=== PATIENT | female | born 1990 | race Caucasian/White ===

== ENCOUNTER 2024-01-29 03:31 | Outpatient (CLI) | payer OTHER ==
[2024-01-29 04:04] LABS: Amorphous Sediment,Urine Rare /hpf; Appearance,Urine Cloudy (Clear); Bilirubin,Urine Negative (Negative); Blood,Urine Moderate (Negative); Color,Urine Light Yellow; Glucose,Urine (UA) Negative (Negative); Ketones,Urine Negative (Negative); Leukocyte Esterase,Urine Large (Negative); Nitrite,Urine Negative (Negative); Protein,Urine 2+ (Negative); RBC,Urine 180 /hpf (0-5); Specific Gravity,Urine 1.017 (1.001-1.035); Squamous Epithelial Cell,Urine 5 /hpf (0-4); Urobilinogen,Urine <2.0 mg/dL (<2.0); WBC,Urine >182 /hpf (0-5)
[2024-01-29 04:59] VITALS: BP 116/73; PULSE 110; RESP 16; TEMP 96.7
--- NOTE | 2024-01-29 09:11 | P.MSEPDOC ---
Presenting Problems - Arrival Data Date of Arrival on Unit: 01/29/24 Time of Arrival on Unit: 03:31 Mode of Transport: Ambulatory - Complaint OB-Reason for Admission/Chief Complaint: Possible Onset of Labor Comment: Patient presents to triage with contractions in back that she is rating 4/10 pain and states they come around every 7 min. Medical History - Information : 1 Para: 0 Term: 0 : 0 Abortions: Spontaneous or Elective: 0 Number of Living Children: 0 - Gestational Age Gestational Age by GURU (wks/days): 21 Weeks and 4 Days Review of Systems - Review of Systems Constitutional: No problems Breast: No problems ENT: No problems Cardiovascular: No problems Respiratory: No problems Gastrointestinal: No problems Genitourinary: No problems Musculoskeletal: No problems Neurological: No problems Skin: No problems Vital Signs - Temperature Temperature: 96.7 F Temperature Source: Temporal Artery Scan - Pulse Pulse Oximetery Pulse Rate: 110 Pulse Assessment Method: Pulse Oximetry - Respirations Respiratory Rate: 16 Oxygen Delivery Method: Room Air O2 Sat by Pulse Oximetry: 98 - Blood Pressure Right Arm Blood Pressure: 116/73 Blood Pressure Mean: 87 Blood Pressure Source: Automatic Cuff Physician Notification - Physician Notified Physician Notified Date: 01/29/24 Physician Notified Time: 04:31 Physician: Mya Upton Order Received: Yes (urinalysis sent for culture and discharge home.) Maternal Triage Index - Maternal Triage Index Presenting for scheduled procedure w/no complaint: No - Stat/Priority 1 Stat Priority 1: No - Urgent/Priority 2 Urgent Priority 2: No - Prompt/Priority 3 Prompt Priority 3: Yes Criteria Met for Priority 3: Patient presents to triage with contractions in back that she is rating 4/10 pain and states they come around every 7 min. Disposition - Disposition OB Disposition: Discharge to home Discharge Date: 01/29/24 Discharge Time: 04:56 I agree with the RN Medical Screening Exam: Yes Case reviewed; plan agreed upon as documented in EMR&OBIX.: Yes Diagnosis: LOW BACK PAIN, UNSPECIFIED
== END 2024-01-29 04:56 ==
LOC: FBPOP 03:31
PROVIDERS: ATTEND Obstetrics & Gynecology
DX: O47.1 False labor at or after 37 completed weeks of gestation (principal); Z3A.24 24 weeks gestation of pregnancy; Z88.1 Allergy status to other antibiotic agents
CPT/HCPCS: 81001; 87086; 99213

== ENCOUNTER 2024-04-01 15:26 | Outpatient (CLI) | payer OTHER ==
[2024-04-01 16:33] LABS: Appearance,Urine Clear (Clear); Bilirubin,Urine Negative (Negative); Blood,Urine Negative (Negative); Color,Urine Colorless; Glucose,Urine (UA) Negative (Negative); Ketones,Urine Negative (Negative); Leukocyte Esterase,Urine Trace (Negative); Nitrite,Urine Negative (Negative); PH, Urine 6.5 (5.0-8.0); Protein,Urine Negative (Negative); RBC,Urine <1 /hpf (0-5); Specific Gravity,Urine 1.002 (1.001-1.035); Squamous Epithelial Cell,Urine 1 /hpf (0-4); Urobilinogen,Urine <2.0 mg/dL (<2.0); WBC,Urine 1 /hpf (0-5)
[2024-04-01 16:59] VITALS: BP 124/78; PULSE 96; RESP 17; TEMP 98.2
--- NOTE | 2024-04-18 10:57 | P.MSEPDOC ---
Presenting Problems - Arrival Data Date of Arrival on Unit: 04/01/24 Time of Arrival on Unit: 15:26 Mode of Transport: Ambulatory - Complaint OB-Reason for Admission/Chief Complaint: Vaginal Bleeding Comment: pt presents to triage for vaginal bleeding, only some pink on the toilet paper around 1400, no other bleeding noted since Medical History - Information : 1 Para: 0 Term: 0 : 0 Abortions: Spontaneous or Elective: 0 Number of Living Children: 0 - Gestational Age Gestational Age by GURU (wks/days): 30 Weeks and 4 Days Review of Systems - Review of Systems Constitutional: No problems Breast: No problems ENT: No problems Cardiovascular: No problems Respiratory: No problems Gastrointestinal: No problems Genitourinary: No problems Musculoskeletal: No problems Neurological: No problems Skin: No problems Vital Signs - Temperature Temperature: 98.2 F Temperature Source: Axillary - Pulse Right Brachial Pulse Rate: 96 Pulse Assessment Method: Automatic Cuff - Respirations Respiratory Rate: 17 Oxygen Delivery Method: Room Air O2 Sat by Pulse Oximetry: 97 - Blood Pressure Right Arm Blood Pressure: 124/78 Blood Pressure Mean: 93 Blood Pressure Source: Automatic Cuff Medical Screen Scoring - Uterine Contractions Intensity: Mild Resting: Soft to palpation - Assessment - Baby A Baseline FHR: 120 Heart Rate - NICHD Category: Category I (Normal) NST: Reactive Physician Notification - Notification Comment Comment: reactive nst, UA wnl, no bleeding noted since inital episode, has appt April 13 in the office Maternal Triage Index - Maternal Triage Index Presenting for scheduled procedure w/no complaint: No - Stat/Priority 1 Stat Priority 1: No - Urgent/Priority 2 Urgent Priority 2: Yes Provider Notified: Ayden Martinez Provider Notified Time: 16:19 Criteria Met for Priority 2: pt presents to triage for vaginal bleeding, only some pink on the toilet paper around 1400, no other bleeding noted since Disposition - Disposition OB Disposition: Triage, Discharge to home, Written follow up instructions reviewed Discharge Date: 04/01/24 Discharge Time: 16:45 I agree with the RN Medical Screening Exam: Yes Physician's MSE Comment: I have neither seen nor examined the patient. Case reviewed; plan agreed upon as documented in EMR&OBIX.: Yes Diagnosis: RELATED CONDITIONS, UNSPECIFIED, THIRD TRIMESTER
== END 2024-04-01 16:45 | disposition home or self-care (01) ==
LOC: FBPOP 15:26
PROVIDERS: ATTEND Obstetrics & Gynecology
DX: O46.93 Antepartum hemorrhage, unspecified, third trimester (principal); Z3A.30 30 weeks gestation of pregnancy; Z88.6 Allergy status to analgesic agent
CPT/HCPCS: 59025; 81001; 99213

== ENCOUNTER 2024-05-16 20:45 | Inpatient (IN) | payer OTHER ==
[2024-05-16] MEDS ORDERED: TRANEXAMIC 1,000 MG/100ML-NACL 1,000 MG in EMPTY BAG 1 BAG IV PRN (21:31)
[2024-05-16] MEDS ORDERED: OXYTOCIN 10 UNIT/ML 1 ML VIAL IM PRN (21:31)
[2024-05-16] MEDS ORDERED: METHYLERGONOVINE 0.2 MG/ML 1 ML AMP IM PRN (21:31)
[2024-05-16] MEDS ORDERED: miSOPROStoL 200 MCG TAB PO PRN (21:31)
[2024-05-16] MEDS ORDERED: LIDOCAINE 0.5% (PF) 5 MG/ML (50 ML SDV) SQ PRN (21:31)
[2024-05-16] MEDS ORDERED: CARBOPROST TROMETHAMINE 250 MCG/ML 1 ML AMP IM PRN (21:31)
[2024-05-16] MEDS ORDERED: TERBUTALINE 1 MG/ML VIAL SQ PRN (21:31)
[2024-05-16] MEDS ORDERED: miSOPROStoL 200 MCG TAB RECTAL PRN (21:31)
[2024-05-16] MEDS: LACTATED RINGERS 1,000 ML IV SCH (22:00)
[2024-05-16 22:32] LABS: Basophils # (A) 0.1 k/uL (0-0.2); Basophils % (A) 1 %; Eosinophils # (A) 0.2 k/uL (0-0.7); Eosinophils % (A) 2 %; HCT 34.1 % (34.0-46.0); HGB 11.2 gm/dL (11.4-16.0); Hypochromasia Slight; Lymphocytes # (A) 3.2 k/uL (1.0-4.8); Lymphocytes % (A) 32 %; MCV 84.9 fL (80.0-100.0); Mean Platelet Volume 10.2; Monocytes # (A) 0.6 k/uL (0-1.0); Monocytes % (A) 6 %; Neutrophils # (A) 5.7 k/uL (1.3-7.7); Neutrophils % (A) 57 %; Platelet Count 248 k/uL (150-450); RBC 4.01 m/uL (3.80-5.40); RDW 12.7 % (11.5-15.5)
[2024-05-16] MEDS ORDERED: SODIUM CHLORIDE 0.9% 250 ML BAG ONE (23:10)
[2024-05-16] MEDS ORDERED: ROPIVACAINE 5 MG/ML 30 ML VIAL ONE (23:10)
[2024-05-16] MEDS ORDERED: fentaNYL (PF) 50 MCG/ML 5 ML AMP ONE (23:10)
--- NOTE | 2024-05-17 00:20 | P.HPOB ---
History of Present Illness H&P Date: 05/17/24 Chief Complaint: IUP at 37 weeks, spontaneous rupture of membranes 33 yo at 37 weeks that presents to labor and delivery with complaints of spontaneous rupture of membranes around 1999. Patient states fluid was noted to be clear in nature. Patient in addition is noting contractions. Patient denies vaginal bleeding. Patient notes good movement. Patient has been receiving routine care which has been essentially uncomplicated. On blood work this patient has a blood type of a positive, rubella status immune, RPR is nonreactive, hepatitis B surface Ag is negative, HIV is negative. Group beta strep culture is negative per patient. Review of Systems Constitutional: Denies chills, Denies fatigue, Denies fever Ears, nose, mouth and throat: Denies headache Cardiovascular: Reports leg edema Respiratory: Denies dyspnea Gastrointestinal: Denies constipation, Denies diarrhea, Denies nausea, Denies v omiting Genitourinary: Reports Past Medical History History of Any Multi-Drug Resistant Organisms: None Reported Past Surgical History: Tonsillectomy Smoking Status: Never smoker Past Drug Use History: None Reported Medications and Allergies Home Medications Medication Instructions Recorded Confirmed Type Aspirin [Adult Low Dose Aspirin EC] 81 mg PO DAILY 01/29/24 05/16/24 History Vit No.179/Iron/Folic 1 tab PO DAILY 01/29/24 05/16/24 History [ Tablet] Allergies Allergy/AdvReac Type Severity Reaction Status Date / Time nitrofurantoin Allergy Rash/Hives Verified 05/16/24 20:54 [From Macrobid] Exam Osteopathic Statement: *. No significant issues noted on an osteopathic structural exam other than those noted in the History and Physical/Consult. Vital Signs Temp Pulse Resp BP Pulse Ox 05/16/24 21:35 97.4 F L 107 H 16 134/91 99 05/16/24 20:51 97.4 F L 107 H 18 134/91 99 Intake and Output 05/16/24 05/16/24 05/17/24 14:59 22:59 06:59 Other: # Voids 1 Weight 89.811 kg Targeted physical exam is performed this date General Is well-nourished well- developed female in active labor, breathing is nonlabored, abdomen is gravid and appropriate for gestational age, on cervical exam she is completely dilated with a bulging veins appreciated, amniotomy is performed and copious johnna ar fluid was obtained. is noted to be +1 station. heart tones are noted to be category 1 she is joseph every 2 minutes. Results Result Diagrams: 05/16/24 21:55 Abnormal Lab Results - Last 24 Hours (Table) 05/16/24 Range/Units 21:55 Hgb 11.2 L (11.4-16.0) gm/dL Assessment and Plan (1) Term Current Visit: Yes Status: Acute Code(s): Z34.90 - ENCNTR FOR SUPRVSN OF NORMAL , UNSP, UNSP TRIMESTER SNOMED Code(s): 19196439 (2) Spontaneous rupture of membranes Current Visit: Yes Status: Acute Code(s): QEP8250 - SNOMED Code(s): 807151137 Plan: 33-year-old 1 para 0 at 37-0/7 weeks that presents with complaints of spontaneous rupture of membranes. Patient was noted to be 4 cm and admitted to labor and delivery. Patient did request epidural anesthesia was notified and epidural was placed prior to my arrival. Patient is completely dilated will commence pushing and anticipate spontaneous vaginal delivery.
[2024-05-17] MEDS: OXYTOCIN 30 UNITS/500 ML NS 30 UNIT in SALINE 1 500ML.BAG IV SCH (00:51)
[2024-05-17] MEDS ORDERED: diphenhydrAMINE 50 MG CAP PO PRN (01:09)
[2024-05-17] MEDS ORDERED: BENZOCAINE/MENTHOL SPRAY 1 GM/SPRAY AEROSOL TOPICAL PRN (01:09)
[2024-05-17] MEDS ORDERED: SIMETHICONE 80 MG CHEWABLE PO PRN (01:09)
[2024-05-17] MEDS ORDERED: LANOLIN CREAM 1 GM TUBE TOPICAL PRN (01:09)
[2024-05-17] MEDS ORDERED: HYDROCORTISONE 2.5% RECTAL CREAM 30 GM TUBE RECTAL PRN (01:09)
[2024-05-17] MEDS ORDERED: diphenhydrAMINE 50 MG/ML 1 ML VIAL IVP PRN ×2 (01:09)
[2024-05-17] MEDS ORDERED: ZOLPIDEM 5 MG TAB PO PRN (01:09)
[2024-05-17] MEDS ORDERED: diphenhydrAMINE 25 MG CAP PO PRN (01:09)
--- NOTE | 2024-05-17 01:09 | P.PROBDLV ---
Vaginal Delivery Note - . Vaginal Delivery Note: Viable male delivered at 0049, weight of 7 pounds 3.5 ounces, Apgars of 9 and 9 at 1 and 5 minutes respectively. 33-year-old 1 para 0 that presented to labor and delivery at 37-0/7 weeks with complaints of spontaneous rupture of membranes. Patient was noted to be joseph every 1 to 3 minutes. Patient did request an epidural after admission anesthesia was notified and placed epidural without difficulty. Patient progressed to complete began pushing and had a normal spontaneous vaginal delivery of a viable male infant at 0049, occiput anterior presentation with compound right hand. After 2-minute delay the umbilical cord was doubly clamped and cut and the placenta was delivered spontaneously intact with a three-vessel cord being noted. Spontaneous cry was noted at . On inspection the patient's vaginal vault a midline second-degree laceration in addition to bilateral sulcal tears was appreciated. These were repaired in the usual fashion with 3-0 Rapide. After closure hemostasis was noted. Uterus was noted to be firm below the umbilicus. Prior to closure of the vaginal laceration the bladder was drained for 100 cc of clear yellow urine via red rubber catheter. All counts noted be correct x 2 at the end of the delivery. Patient and tolerated delivery well and are resting comfortably.
[2024-05-17] MEDS: IBUPROFEN 600 MG TAB PO SCH (03:00)
[2024-05-17] MEDS: SENNOSIDES-DOCUSATE SODIUM 1 EACH TAB PO SCH (08:32)
[2024-05-17] MEDS: PRENATAL VIT-IRON-FOLIC ACID 1 EACH TABLET PO SCH (08:33)
[2024-05-17] MEDS: SENNA LEAF EXTRACT SYRUP 528 MG/15 ML CUP PO SCH (08:33)
--- NOTE | 2024-05-17 09:04 | P.PNOBGVD ---
Subjective - Subjective Principal diagnosis: day #0 Interval history: Patient is doing well. She is ambulating and voiding without difficulty. States her pain is well-controlled. She is breast-feeding without difficulty. Lochia is noted be moderate Patient reports: Reports appetite normal, Reports voiding normally, Reports pain well controlled, Reports ambulating normally [place]: doing well, nursing well Objective - Latest Vital Signs Latest vital signs: Vital Signs Temp Pulse Resp BP Pulse Ox 05/17/24 06:57 87 16 115/69 98 05/17/24 05:12 86 16 05/17/24 03:06 97.7 F 86 16 118/70 05/17/24 02:51 97.8 F 86 16 113/68 05/17/24 02:36 90 16 125/73 05/17/24 02:21 99.0 F 96 16 124/72 05/17/24 02:06 98 16 130/76 05/17/24 01:51 99.2 F 90 16 104/67 05/17/24 01:36 103 H 16 121/74 05/17/24 01:21 99.0 F 91 16 117/76 05/17/24 01:06 99.3 F 99 16 116/78 05/16/24 21:35 97.4 F L 107 H 16 134/91 99 05/16/24 20:51 97.4 F L 107 H 18 134/91 99 Intake and Output 05/16/24 05/17/24 05/17/24 22:59 06:59 14:59 Intake Total 167 Output Total 410 Balance -243 Intake: Intake, IV Titration 167 Amount Oxytocin 30 Units/500 ml 167 Ns 30 unit In Saline 1 500ml.bag @ Per Protocol IV .Q0M [facility] Rx#:[id number] Output: Estimated Blood Loss 200 Output, Quantitative 210 Blood Loss Other: # Voids 1 1 Weight 89.811 kg - Exam Extremities: Present: normal, edema Abdomen: Present: normal appearance, soft Uterus: Present: normal, firm - Labs Labs: Abnormal Lab Results - Last 24 Hours (Table) 05/16/24 Range/Units 21:55 Hgb 11.2 L (11.4-16.0) gm/dL Assessment and Plan (1) Term Current Visit: Yes Status: Acute Code(s): Z34.90 - ENCNTR FOR SUPRVSN OF NORMAL , UNSP, UNSP TRIMESTER SNOMED Code(s): 59681130 (2) Spontaneous rupture of membranes Current Visit: Yes Status: Acute Code(s): IGM4970 - SNOMED Code(s): 676431529 (3) Normal spontaneous vaginal delivery Current Visit: Yes Status: Acute Code(s): O80 - ENCOUNTER FOR FULL-TERM UNCOMPLICATED DELIVERY SNOMED Code(s): 80338845 (4) Obstetric vaginal laceration with second degree perineal laceration Current Visit: Yes Status: Acute Code(s): O70.1 - SECOND DEGREE PERINEAL LACERATION DURING DELIVERY SNOMED Code(s): 810315873 Plan: 33-year-old G1 now P1 status postnormal spontaneous vaginal delivery. Patient is doing well . Breast-feeding is going well. Anticipate discharge home tomorrow.
[2024-05-17] MEDS: IBUPROFEN 600 MG TAB PO PRN (21:45)
[2024-05-18] MEDS: ACETAMINOPHEN TAB 325 MG TAB PO PRN (00:35)
[2024-05-18 08:21] VITALS: BP 104/74; PULSE 99; RESP 15; TEMP 97.5
--- NOTE | 2024-05-18 08:45 | P.DS ---
Providers Date of admission: 05/16/24 21:10 Expected date of discharge: 05/18/24 Attending physician: Ayden Martinez Primary care physician: Stated None - Discharge Diagnosis(es) (1) Normal spontaneous vaginal delivery Current Visit: Yes Status: Acute Hospital Course: The patient is a 33-year-old 1 para 0 admitted at 37-0/7 weeks but getting parameters with documented spontaneous rupture of membranes. Her has been entirely uncomplicated and group B strep status is negative. All signs are reassuring with a category 1 heart rate tracing. Patient's labor progressed steadily and she had an epidural catheter placed for analgesia. She progressed to complete and then pushed to a normal spontaneous vaginal delivery of a viable 7 pound 3 ounce baby boy with Apgars of 9 at 1 minute and 9 at 5 minutes. Her course was unremarkable with vital signs remaining stable and her temperature was afebrile throughout. She was deemed stable for discharge on day #1 and was discharged home to follow-up in the office in 6 weeks time routinely. Discharge instructions included calling for any significantly increased bleeding or foul-smelling lochia, significantly increased fever or abdominal pain, perineal complaints, breast complaints, or anything else that concerned her. She was additionally instructed to have nothing in the vagina for at least 6 weeks time to include intercourse. She understood her instructions and agrees to follow-up as noted above. Discharge medications included continued vitamins as she has opted to breast- feed. She was additionally to use [id number] analgesic pain medications as needed. Maternal blood type is A+ and rubella status is immune. Procedures: #1. Epidural analgesia #2. Normal spontaneous vaginal delivery #3. Repair of perineal laceration Patient Condition at Discharge: Stable Plan - Discharge Summary New Discharge Prescriptions: No Action Vit No.179/Iron/Folic [ Tablet] 1 tab PO DAILY Aspirin [Adult Low Dose Aspirin EC] 81 mg PO DAILY Discharge Medication List Aspirin [Adult Low Dose Aspirin EC] 81 mg PO DAILY 01/29/24 [History] Vit No.179/Iron/Folic [ Tablet] 1 tab PO DAILY 01/29/24 [History] Follow up Appointment(s)/Referral(s): Ayden Martinez MD [STAFF PHYSICIAN] - 6 Weeks Discharge Disposition: HOME SELF-CARE
== END 2024-05-18 11:25 | disposition home or self-care (01) | DRG 807 ==
LOC: FBPOP 20:45 → 4FBP 21:10
PROVIDERS: ADMIT Obstetrics & Gynecology Obstetrics; ATTEND Obstetrics & Gynecology
PROC: 10E0XZZ Delivery of Products of Conception, External Approach (ICD-10-PCS; principal; 2024-05-16)
PROC: 0KQM0ZZ Repair Perineum Muscle, Open Approach (ICD-10-PCS; 2024-05-16)
DX: O70.1 Second degree perineal laceration during delivery (principal); Z37.0 Single live birth; Z3A.37 37 weeks gestation of pregnancy; Z79.82 Long term (current) use of aspirin